=== PATIENT | female | born 1995 | race Two or more races ===

== ENCOUNTER 2017-03-06 20:31 | Emergency (ER) | payer OTHER ==
[~2017-03-06] VITALS: Ht 162.6 cm; Wt 52.2 kg
[2017-03-06 21:58] VITALS: BP 105/68
[2017-03-06 22:05] LABS: Urine Bacteria None Seen /hpf (None Seen)
[2017-03-06 22:43] LABS: Urine Blood Negative /uL (Negative)
[2017-03-06 22:44] LABS: Urine WBC 1 /hpf (0 - 5)
== END 2017-03-06 22:48 | disposition home or self-care (01) ==
LOC: ER 20:31
DX: R23.8 Other skin changes (principal)
CPT/HCPCS: 81001; 81025